=== PATIENT | male | born 1965 | race Caucasian/White ===

== ENCOUNTER 2016-06-19 11:47 | Inpatient (IN) | payer OTHER ==
--- NOTE | 2016-06-19 15:01 | HP ---
COWS - Scale Resting Pulse: 0= [place] 80 or Below Sweatin=Flushed/Facial Moisture Restless Observation: 3= Extraneous Movement Pupil Size: 2= Moderately Dilated Bone or Joint Aches: 2= Severe Diffuse Aches Runny Nose/ Eye Tearin= Runny Nose/Eyes GI Upset > 30mins: 3= Vomiting/Diarrhea Tremor Observation: 2= Slight Tremor Visible Yawning Observation: 2= >3x During Session Anxiety or Irritability: 2=Irritable/Anxious Goose Flesh Skin: 0=Smooth Skin COWS Score: 20 CIWA Score - CIWA Score Nausea/Vomitin Muscle Tremors: 3 Anxiety: 3 Agitation: 3 Paroxysmal Sweats: 2 Orientation: 0-Oriented Tacttile Disturbances: 2-Mild Itch/Numbness/Burn Auditory Disturbances: 2-Mild Harshness/Frighten Visual Disturbances: 2-Mild Sensitivity Headache: 2-Mild CIWA-Ar Total Score: 22 Admission ROS BHS - HPI Chief Complaint: I NEED HELP TO STOP USING HEROIN,ALCOHOL,XANAX Allergies/Adverse Reactions: Allergies Allergy/AdvReac Type Severity Reaction Status Date / Time No Known Allergies Allergy Verified 06/19/16 14:52 History of Present Illness: THIS 50 YEARS OLD WHITE MALE SEEKING HELP TO STOP USING HEROIN,ALCOHOL AND XANAX , MULTIPLE ADMISSIONS IN THE PAST,LAST DETOX [facility] IN 05/27 WEIGHT LOSS LONGEST PERIOD OF SOBRIETY 6 MONTHS Exam Limitations: No Limitations - Ebola screening Have you traveled outside of the country in the last 21 days: No Have you had contact with anyone from an Ebola affected area: No Have you been sick,other than usual withdrawal symptoms: No - Review of Systems Constitutional: Chills, Diaphoresis, Loss of Appetite, Malaise, Night Sweats, Changes in sleep, Weakness, Unintentional Wgt. Loss EENT: reports: Tearing, Nose Congestion Respiratory: reports: No Symptoms reported Cardiac: reports: Palpitations GI: reports: Diarrhea, Nausea, Vomiting, Abdominal cramping : reports: No Symptoms Reported Musculoskeletal: reports: Back Pain, Joint Pain, Muscle Pain, Joint Stiffness Integumentary: reports: Dryness Neuro: reports: Headache, Tremors Endocrine: reports: No Symptoms Reported Hematology: reports: No Symptoms Reported Psychiatric: reports: No Sypmtoms Reported, Judgement Intact, Mood/Affect Appropiate, Orientated x3, Depressed Patient History - Patient Medical History Hx Anemia: No Hx Asthma: No Hx Chronic Obstructive Pulmonary Disease (COPD): No Hx Cancer: No Hx Cardiac Disorders: No Hx Congestive Heart Failure: No Hx Hypertension: No Hx Hypercholesterolemia: No Hx Pacemaker: No HX Cerebrovascular Accident: No Hx Seizures: Yes (LAST 2006) Hx Dementia: No Hx Diabetes: No Hx Gastrointestinal Disorders: No Hx Liver Disease: No Hx Genitourinary Disorders: No Hx Sexually Transmitted Disorders: No Hx Renal Disease (ESRD): No Hx Thyroid Disease: No Hx Human Immunodeficiency Virus (HIV): Yes (LAST 05/27) Hx Hepatitis C: No Hx Depression: Yes (NO MED) Hx Suicide Attempt: No Hx Bipolar Disorder: No Hx Schizophrenia: No Other Medical History: NO SUICIDAL.NO HOMICIDAL - Patient Surgical History Past Surgical History: No - PPD History Previous Implant?: Yes Documented Results: Negative w/o proof Implanted On Prior [facility] Admission?: No PPD to be Administered?: Yes - Smoking Cessation Smoking history: Never smoked - Substance & Tx. History Hx Alcohol Use: Yes Hx Substance Use: Yes Substance Use Type: Alcohol, Heroin, Tranquilizers Hx Substance Use Treatment: Yes ([facility] 05/27) - Substances Abused Heroin Route: Inhalation Frequency: Daily Amount used: 10 BAGS Age of first use: 50 Date of Last Use: 06/18/16 Alcohol Route: Oral Frequency: Daily Amount used: 2 24 OZ BEERS Age of first use: 29 Date of Last Use: 06/12/16 Alprazolam (Xanax) Route: Oral Frequency: Daily Amount used: 2MG Age of first use: 24 Date of Last Use: 06/19/16 Family Disease History - Family Disease History Family Disease History: Heart Disease: Father (), Other: Mother ( ,PULMONARY EMBOLUS) Admission Physical Exam BHS - Vital Signs Vital Signs: Vital Signs - 24 hr 06/19/16 13:57 Temperature 96 F L Pulse Rate 77 Respiratory 20 Rate Blood Pressure 124/72 - Physical General Appearance: Yes: Moderate Distress, Tremorous, Irritable, Sweating, Anxious HEENTM: Yes: Normal ENT Inspection, Normocephalic, DEEDEE, Pharynx Normal Respiratory: Yes: Lungs Clear, Normal Breath Sounds, No Respiratory Distress Neck: Yes: Within Normal Limits, Supple, Trachea in good position Breast: Yes: Within Normal Limits Cardiology: Yes: Within Normal Limits, Regular Rhythm, Regular Rate, S1, S2 Abdominal: Yes: Within Normal Limits, Normal Bowel Sounds, Non Tender, Flat, Soft Genitourinary: Yes: Within Normal Limits Back: Yes: Muscle Spasm Musculoskeletal: Yes: full range of Motion, Back pain, Joint Stiffness, Muscle Pain Extremities: Yes: Within Normal Limits, Normal Range of Motion, Tremors Neurological: Yes: principal network architect II-XII NML intact, Fully Oriented, Alert, Motor Strength 5/5 Integumentary: Yes: Dry Lymphatic: Yes: Within Normal Limits - Diagnostic (1) Opioid dependence with withdrawal Current Visit: Yes Status: Acute (2) Alcohol dependence with uncomplicated withdrawal Current Visit: Yes Status: Acute (3) Uncomplicated sedative, hypnotic, or anxiolytic withdrawal Current Visit: Yes Status: Acute (4) Seizure Current Visit: Yes Status: Acute (5) Depression Current Visit: Yes Status: Acute (6) Weight loss Current Visit: Yes Status: Acute (7) Positive PPD Current Visit: Yes Status: Acute Cleared for Admission [facility] - Detox or Rehab [facility] Level of Care: Medically Managed Detox Regimen/Protocol: Methadone (URINE FOR DRUG SCREEN NEGATIVE FOR BENZODIAZEPAM) [facility] Breath Alcohol Content Breath Alcohol Content: 0 Urine Drug Screen - Results Drug Screen Negative: No Urine Drug Screen Results: OPI-Opiates
[2016-06-19] MEDS ORDERED: MAGNESIUM HYDROX 2400MG/30ML ORAL SUSPENSION 30 ML CUP PO PRN (15:11)
[2016-06-19] MEDS ORDERED: P-EPHED 60MG/TRIPROLIDI 2.5MG TABLET PO PRN (15:11)
[2016-06-19] MEDS ORDERED: guaiFENesin/D-METHORPHAN HB 10 ML UNIT-DOSE CUPS PO PRN (15:11)
[2016-06-19] MEDS ORDERED: MAGNESIUM CITRATE 300 ML BOTTLE PO PRN (15:11)
[2016-06-19] MEDS ORDERED: MENTHOL/PHENOL 1 EACH UD MM PRN (15:11)
[2016-06-19] MEDS ORDERED: IBUPROFEN 400 MG TABLET (FP) PO PRN (15:11)
[2016-06-19] MEDS ORDERED: diphenhydrAMINE HCL 50 MG CAPSULE PO PRN (15:11)
[2016-06-19] MEDS ORDERED: hydrOXYzine PAMOATE 50 MG CAPSULE (FP) PO PRN (15:11)
[2016-06-19] MEDS ORDERED: ACETAMINOPHEN 325 MG TABLET (FP) PO PRN (15:11)
[2016-06-19] MEDS ORDERED: MAG HYDROX/AL HYDROX/SIMETH 30 ML UNIT-DOSE CUP PO PRN (15:11)
[2016-06-19] MEDS ORDERED: LOPERAMIDE HCL 2 MG CAPSULE PO PRN (15:11)
[2016-06-19] MEDS ORDERED: METHADONE HCL 10 MG TABLET (FOR DETOX USE ONLY) PO ONE ×2 (15:30→23:00)
--- NOTE | 2016-06-19 17:46 | CONSULT ---
[facility] Psychiatric Consult - Data Date of interview: 06/19/16 Admission source: [facility] Identifying data: First admission to [facility] for this [place] Citizen-born male seeking detox treatment for alcohol,heroin and xanax dependence.Patient is single without children,domiciled,unemployed and reportedly deprived of any source of income. Substance Abuse History: - Smoking Cessation. Smoking history: Never smoked. - Substance & Tx. History. Hx Alcohol Use: Yes. Hx Substance Use: Yes. Substance Use Type: Alcohol, Heroin, Tranquilizers. Hx Substance Use Treatment : Yes ([facility] 05/27). - Substances Abused. Heroin. Route: Inhalation. Frequency: Daily. Amount used: 10 BAGS. Age of first use: 50. Date of Last Use: 06/18/16. Alcohol. Route: Oral. Frequency: Daily. Amount used: 2 24 OZ BEERS. Age of first use: 29. Date of Last Use: 06/12/16. Alprazolam ( Xanax). Route: Oral. Frequency: Daily. Amount used: 2MG. Age of first use: 24. Date of Last Use: 06/19/16. Confirmed by patient. Medical History: HIV infection (diagnosed in 2017),seizure disorder. Psychiatric History: Patient admits to a history of psychiatric hospitalizations in [place].Diagnosed with MDD and PTSD.Prescribed celexa 20 mg/day + trazodone 50 mg/hs.Verified by pharmacy claims of 06/03/16 at [facility].Patient denies history of suicide attempts. Physical/Sexual Abuse/Trauma History: Patient denies history of sexual abuse.Traumatized by his past experiences during his service in the [employer] ().Endorses occasional nightmares and flashbacks. Additional Comment: Urine Drug Screen Results: OPI-Opiates.Noted. Mental Status Exam - Mental Status Exam Alert and Oriented to: Time, Place, Person Cognitive Function: Good Patient Appearance: Well Groomed (thin habitus,short stature) Mood: Anxious, Apprehensive, Hopeful Affect: Mood Congruent, Constricted Patient Behavior: Fatigued, Appropriate, Cooperative Speech Pattern: Clear (bilingual), Appropriate Voice Loudness: Mildly Soft/Quiet Thought Process: Intact, Goal Oriented Thought Disorder: Not Present Hallucinations: Denies Suicidal Ideation: Denies Homicidal Ideation: Denies Insight/Judgement: Poor Sleep: Poorly, Difficulty falling asleep Appetite: Poor, Weight loss Muscle strength/Tone: Normal Gait/Station: Normal Psychiatric Findings - Problem List ([place] 1, 2,3) (1) Alcohol dependence with uncomplicated withdrawal Current Visit: Yes Status: Acute (2) Opioid dependence with withdrawal Current Visit: Yes Status: Acute (3) Uncomplicated sedative, hypnotic, or anxiolytic withdrawal Current Visit: Yes Status: Acute (4) Substance induced mood disorder Current Visit: Yes Status: Acute (5) Post traumatic stress disorder (PTSD) Current Visit: Yes Status: Chronic (6) Depressive disorder Current Visit: Yes Status: Chronic (7) Positive PPD Current Visit: Yes Status: Chronic (8) Seizure Current Visit: Yes Status: Chronic (9) Weight loss Current Visit: Yes Status: Chronic (10) Insomnia Current Visit: Yes Status: Acute - Initial Treatment Plan Initial Treatment Plan: Psychoeducation.Detoxification.Medications : celexa 20 mg po daily + trazodone 50 mg po hs.Side effects/benefits discussed with patient.Made aware of risk of sexual dysfunction,suicidal ideation (celexa), priapism (trazodone).He agrees with this careplan.Observation.
[2016-06-19] MEDS ORDERED: METHADONE HCL 10 MG TABLET PO ONE (19:22)
[2016-06-19] MEDS: THIAMINE HCL 100 MG TABLET (FP) PO SCH (22:43)
[2016-06-19] MEDS: traZODone HCL 50 MG TABLET (FP) PO SCH (22:44)
[2016-06-19] MEDS: cloNIDine HCL 0.1 MG TABLET PO SCH (22:45)
[2016-06-19 23:06] LABS: URINE APPEARANCE CLEAR; URINE BILIRUBIN NEGATIVE (NEGATIVE); URINE BLOOD NEGATIVE (NEGATIVE); URINE COLOR STRAW; URINE GLUCOSE (UA) NEGATIVE (NEGATIVE); URINE KETONE NEGATIVE (NEGATIVE); URINE LEUK ESTERASE NEGATIVE (NEGATIVE); URINE NITRITE NEGATIVE (NEGATIVE); URINE PROTEIN NEGATIVE (NEGATIVE); URINE UROBILINOGEN NEGATIVE E.U./dl (0.2-1.0)
[2016-06-20] MEDS: diazePAM 5 MG TABLET PO PRN ×2 (05:40→10:35)
[2016-06-20 09:13] LABS: HIV 1 & 2 AB NEGATIVE; HIV 1 AGp24 NEGATIVE
[2016-06-20 10:00] LABS: MCH 32.3 pg (25.7-33.7); MCHC 33.6 g/dl (32.0-35.9); MEAN PLT VOLUME 10.9 fl (7.5-11.1); PLATELET COUNT 146 K/MM3 (134-434); RDW 12.9 % (11.9-15.9); WHITE BLOOD COUNT 6.2 K/mm3 (4.0-10.0)
[2016-06-20] MEDS ORDERED: METHADONE HCL 10 MG TABLET (FOR DETOX USE ONLY) PO ONE (10:00)
[2016-06-20] MEDS ORDERED: CITALOPRAM HYDROBROMIDE 20 MG TABLET (FP) PO SCH (10:00)
[2016-06-20 10:03] LABS: ALBUMIN 4.6 g/dl (3.4-5.0); BILIRUBIN,TOTAL 0.5 mg/dL (0.2-1.0); SGOT/AST 18 U/L (15-37); SGPT/ALT 19 U/L (12-78)
[2016-06-20 10:06] LABS: ALK PHOS 67 U/L (45-117); ANION GAP 8 (8-16); CALCIUM 9.6 mg/dL (8.5-10.1); CO2 32 mmol/L (21-32); COCKROFT - GAULT 77.27; CREATININE 0.9 mg/dL (0.7-1.3); GLUCOSE,RANDOM 95 mg/dL (74-106); TOT PROT 8.1 g/dl (6.4-8.2)
[2016-06-20] MEDS: PRENATAL VITAMINS W/ FOLIC ACID TABLET (FP) PO SCH (10:34)
[2016-06-20] MEDS: cloNIDine HCL 0.1 MG TABLET PO SCH ×2 (10:35→22:55)
[2016-06-20] MEDS: CITALOPRAM HYDROBROMIDE 20 MG TABLET (FP) PO SCH (10:35)
[2016-06-20] MEDS: CYCLOBENZAPRINE HCL 10 MG TABLET (FP) PO PRN (11:42)
--- NOTE | 2016-06-20 12:50 | EKG ---
Test Reason : Blood Pressure : / mmHG Vent. Rate : 067 BPM Atrial Rate : 067 BPM P-R Int : 146 ms QRS Dur : 086 ms QT Int : 382 ms P-R-T Axes : 040 046 054 degrees QTc Int : 403 ms NORMAL SINUS RHYTHM NORMAL ECG NO PREVIOUS ECGS AVAILABLE Confirmed by SCOTT WILLIS MD ([id number]) on 06/20/2016 12:50:03 PM Referred By: German Aaron Confirmed By:SCOTT WILLIS MD
--- NOTE | 2016-06-20 13:38 | PN ---
[facility] CIWA - CIWA Score Nausea/Vomitin-Mild Nausea/No Vomiting Muscle Tremors: 4-Moderate,w/Arms Extend Anxiety: 3 Agitation: 2 Paroxysmal Sweats: 3 Orientation: 0-Oriented Tacttile Disturbances: 3-Moderate Itch/Numb/Burn Auditory Disturbances: 1-Very Mild Visual Disturbances: 0-None Headache: 3-Moderate CIWA-Ar Total Score: 20 BHS COWS - Scale Resting Pulse: 0= [place] 80 or Below Sweatin= Chills/Flushing Restless Observation: 1= Difficult to Sit Still Pupil Size: 0= Normal to Room Light Bone or Joint Aches: 2= Severe Diffuse Aches Runny Nose/ Eye Tearin= Nasal Congestion GI Upset > 30mins: 1= Stomach Cramp Tremor Observation of Outstretched Hands: 2= Slight Tremor Visible Yawning Observation: 1= 1-2x During Session Anxiety or Irritability: 2=Irritable/Anxious Goose Flesh Skin: 3=Piloerection COWS Score: 14 [facility] Progress Note (SOAP) Subjective: Body aches / muscle spasms, H/A, Tremors. Objective: PT. A & O X 3. 06/20/16 13:37 Vital Signs Temperature 97.2 F L 06/20/16 13:31 Pulse Rate 62 06/20/16 13:31 Respiratory Rate 18 06/20/16 13:31 Blood Pressure 76/49 06/20/16 13:31 O2 Sat by Pulse Oximetry (%) Laboratory Last Values WBC 6.2 K/mm3 (4.0-10.0) 06/20/16 06:00 RBC 4.35 M/mm3 (4.00-5.60) 06/20/16 06:00 Hgb 14.0 GM/dL (11.7-16.9) 06/20/16 06:00 Hct 41.8 % (35.4-49) 06/20/16 06:00 MCV 96.0 fl (80-96) 06/20/16 06:00 MCHC 33.6 g/dl (32.0-35.9) 06/20/16 06:00 RDW 12.9 % (11.9-15.9) 06/20/16 06:00 Plt Count 146 K/MM3 (134-434) 06/20/16 06:00 MPV 10.9 fl (7.5-11.1) 06/20/16 06:00 Sodium 140 mmol/L (136-145) 06/20/16 06:00 Potassium 3.9 mmol/L (3.5-5.1) 06/20/16 06:00 Chloride 100 mmol/L (98-107) 06/20/16 06:00 Carbon Dioxide 32 mmol/L (21-32) 06/20/16 06:00 Anion Gap 8 (8-16) 06/20/16 06:00 BUN 11 mg/dL (7-18) 06/20/16 06:00 Creatinine 0.9 mg/dL (0.7-1.3) 06/20/16 06:00 Creat Clearance w eGFR > 60 (>60) 06/20/16 06:00 Random Glucose 95 mg/dL (74-106) 06/20/16 06:00 Calcium 9.6 mg/dL (8.5-10.1) 06/20/16 06:00 Total Bilirubin 0.5 mg/dL (0.2-1.0) 06/20/16 06:00 AST 18 U/L (15-37) 06/20/16 06:00 ALT 19 U/L (12-78) 06/20/16 06:00 Alkaline Phosphatase 67 U/L (45-117) 06/20/16 06:00 Total Protein 8.1 g/dl (6.4-8.2) 06/20/16 06:00 Albumin 4.6 g/dl (3.4-5.0) 06/20/16 06:00 Urine Color Straw 06/19/16 23:00 Urine Appearance Clear 06/19/16 23:00 Urine pH 7.0 (5.0-8.0) 06/19/16 23:00 Ur Specific [place] 1.015 (1.005-1.025) 06/19/16 23:00 Urine Protein Negative (NEGATIVE) 06/19/16 23:00 Urine Glucose (UA) Negative (NEGATIVE) 06/19/16 23:00 Urine Ketones Negative (NEGATIVE) 06/19/16 23:00 Urine Blood Negative (NEGATIVE) 06/19/16 23:00 Urine Nitrite Negative (NEGATIVE) 06/19/16 23:00 Urine Bilirubin Negative (NEGATIVE) 06/19/16 23:00 Urine Urobilinogen Negative E.U./dl (0.2-1.0) 06/19/16 23:00 Ur Leukocyte Esterase Negative (NEGATIVE) 06/19/16 23:00 RPR Titer Nonreactive (NONREACTIVE) 06/20/16 06:00 HIV 1&2 Antibody Screen Negative 06/19/16 15:00 HIV P24 Antigen Negative 06/19/16 15:00 LABS NOTED. Assessment: 06/20/16 13:38 WITHDRAWAL SYMPTOMS. Plan: CONTINUE DETOX. ADVISED PATIENT TO FOLLOW-UP WITH [facility] AFTER DISCHARGE FROM DETOX FOR GENERAL MEDICAL ASSESSMENT AND FOR ABNORMAL ADMISSION LAB VALUES.
[2016-06-20] MEDS: THIAMINE HCL 100 MG TABLET (FP) PO SCH (22:55)
[2016-06-20] MEDS: traZODone HCL 50 MG TABLET (FP) PO SCH (22:55)
[2016-06-21] MEDS ORDERED: METHADONE HCL 5 MG TABLET (FOR DETOX USE ONLY) PO ONE (10:00)
[2016-06-21] MEDS: cloNIDine HCL 0.1 MG TABLET PO SCH (10:33)
[2016-06-21] MEDS: CYCLOBENZAPRINE HCL 10 MG TABLET (FP) PO PRN (10:33)
[2016-06-21] MEDS: diazePAM 5 MG TABLET PO PRN ×2 (10:33→22:55)
[2016-06-21] MEDS: PRENATAL VITAMINS W/ FOLIC ACID TABLET (FP) PO SCH (10:33)
[2016-06-21] MEDS: CITALOPRAM HYDROBROMIDE 20 MG TABLET (FP) PO SCH (10:33)
--- NOTE | 2016-06-21 15:55 | PN ---
[facility] CIWA - CIWA Score Nausea/Vomitin-No Nausea/No Vomiting Muscle Tremors: 4-Moderate,w/Arms Extend Anxiety: 2 Agitation: 2 Paroxysmal Sweats: 3 Orientation: 0-Oriented Tacttile Disturbances: 3-Moderate Itch/Numb/Burn Auditory Disturbances: 3-Moderate Harsh/Frighten Visual Disturbances: 2-Mild Sensitivity Headache: 0-None Present CIWA-Ar Total Score: 19 S COWS - Scale Resting Pulse: 0= [place] 80 or Below Sweatin=Flushed/Facial Moisture Restless Observation: 1= Difficult to Sit Still Pupil Size: 0= Normal to Room Light Bone or Joint Aches: 2= Severe Diffuse Aches Runny Nose/ Eye Tearin= None GI Upset > 30mins: 1= Stomach Cramp Tremor Observation of Outstretched Hands: 2= Slight Tremor Visible Yawning Observation: 1= 1-2x During Session Anxiety or Irritability: 2=Irritable/Anxious Goose Flesh Skin: 3=Piloerection COWS Score: 14 S Progress Note (SOAP) Subjective: Fatigue, Body aches, Tremors. Objective: PT. A & O X 3, OBSERVED AMBULATING ON UNIT. PT. REPORTS HISTORY OF LOW BP. PT. DENIES DIZZINESS. 06/21/16 15:51 Vital Signs Temperature 96.2 F L 06/21/16 13:58 Pulse Rate 61 06/21/16 13:58 Respiratory Rate 18 06/21/16 13:58 Blood Pressure 97/64 06/21/16 13:58 O2 Sat by Pulse Oximetry (%) Laboratory Last Values WBC 6.2 K/mm3 (4.0-10.0) 06/20/16 06:00 RBC 4.35 M/mm3 (4.00-5.60) 06/20/16 06:00 Hgb 14.0 GM/dL (11.7-16.9) 06/20/16 06:00 Hct 41.8 % (35.4-49) 06/20/16 06:00 MCV 96.0 fl (80-96) 06/20/16 06:00 MCHC 33.6 g/dl (32.0-35.9) 06/20/16 06:00 RDW 12.9 % (11.9-15.9) 06/20/16 06:00 Plt Count 146 K/MM3 (134-434) 06/20/16 06:00 MPV 10.9 fl (7.5-11.1) 06/20/16 06:00 Sodium 140 mmol/L (136-145) 06/20/16 06:00 Potassium 3.9 mmol/L (3.5-5.1) 06/20/16 06:00 Chloride 100 mmol/L (98-107) 06/20/16 06:00 Carbon Dioxide 32 mmol/L (21-32) 06/20/16 06:00 Anion Gap 8 (8-16) 06/20/16 06:00 BUN 11 mg/dL (7-18) 06/20/16 06:00 Creatinine 0.9 mg/dL (0.7-1.3) 06/20/16 06:00 Creat Clearance w eGFR > 60 (>60) 06/20/16 06:00 Random Glucose 95 mg/dL (74-106) 06/20/16 06:00 Calcium 9.6 mg/dL (8.5-10.1) 06/20/16 06:00 Total Bilirubin 0.5 mg/dL (0.2-1.0) 06/20/16 06:00 AST 18 U/L (15-37) 06/20/16 06:00 ALT 19 U/L (12-78) 06/20/16 06:00 Alkaline Phosphatase 67 U/L (45-117) 06/20/16 06:00 Total Protein 8.1 g/dl (6.4-8.2) 06/20/16 06:00 Albumin 4.6 g/dl (3.4-5.0) 06/20/16 06:00 Urine Color Straw 06/19/16 23:00 Urine Appearance Clear 06/19/16 23:00 Urine pH 7.0 (5.0-8.0) 06/19/16 23:00 Ur Specific [place] 1.015 (1.005-1.025) 06/19/16 23:00 Urine Protein Negative (NEGATIVE) 06/19/16 23:00 Urine Glucose (UA) Negative (NEGATIVE) 06/19/16 23:00 Urine Ketones Negative (NEGATIVE) 06/19/16 23:00 Urine Blood Negative (NEGATIVE) 06/19/16 23:00 Urine Nitrite Negative (NEGATIVE) 06/19/16 23:00 Urine Bilirubin Negative (NEGATIVE) 06/19/16 23:00 Urine Urobilinogen Negative E.U./dl (0.2-1.0) 06/19/16 23:00 Ur Leukocyte Esterase Negative (NEGATIVE) 06/19/16 23:00 RPR Titer Nonreactive (NONREACTIVE) 06/20/16 06:00 HIV 1&2 Antibody Screen Negative 06/19/16 15:00 HIV P24 Antigen Negative 06/19/16 15:00 LABS NOTED. Assessment: 06/21/16 15:54 WITHDRAWAL SYMPTOMS. Plan: CONTINUE DETOX. ADVISED PATIENT TO FOLLOW-UP WITH CALL OR CONTACT CENTRE OPERATOR / REHAB MEDICAL PROVIDER AFTER DISCHARGE FROM DETOX FOR GENERAL MEDICAL ASSESSMENT AND FOR ABNORMAL ADMISSION LAB VALUES.
[2016-06-21] MEDS: THIAMINE HCL 100 MG TABLET (FP) PO SCH (22:54)
[2016-06-21] MEDS: traZODone HCL 50 MG TABLET (FP) PO SCH (22:54)
[2016-06-22] MEDS ORDERED: METHADONE HCL 5 MG TABLET (FOR DETOX USE ONLY) PO ONE (10:00)
[2016-06-22] MEDS: diazePAM 5 MG TABLET PO PRN (10:59)
[2016-06-22] MEDS: PRENATAL VITAMINS W/ FOLIC ACID TABLET (FP) PO SCH (10:59)
[2016-06-22] MEDS: CITALOPRAM HYDROBROMIDE 20 MG TABLET (FP) PO SCH (10:59)
--- NOTE | 2016-06-22 15:33 | PN ---
S Progress Note (SOAP) Subjective: Fatigue, Anxious, Tremors. Objective: PT. A & O X 3, OBSERVED AMBULATING ON UNIT. 06/22/16 15:32 Vital Signs Temperature 96.2 F L 06/22/16 10:58 Pulse Rate 63 06/22/16 10:58 Respiratory Rate 18 06/22/16 10:58 Blood Pressure 103/67 06/22/16 10:58 O2 Sat by Pulse Oximetry (%) Laboratory Last Values WBC 6.2 K/mm3 (4.0-10.0) 06/20/16 06:00 RBC 4.35 M/mm3 (4.00-5.60) 06/20/16 06:00 Hgb 14.0 GM/dL (11.7-16.9) 06/20/16 06:00 Hct 41.8 % (35.4-49) 06/20/16 06:00 MCV 96.0 fl (80-96) 06/20/16 06:00 MCHC 33.6 g/dl (32.0-35.9) 06/20/16 06:00 RDW 12.9 % (11.9-15.9) 06/20/16 06:00 Plt Count 146 K/MM3 (134-434) 06/20/16 06:00 MPV 10.9 fl (7.5-11.1) 06/20/16 06:00 Sodium 140 mmol/L (136-145) 06/20/16 06:00 Potassium 3.9 mmol/L (3.5-5.1) 06/20/16 06:00 Chloride 100 mmol/L (98-107) 06/20/16 06:00 Carbon Dioxide 32 mmol/L (21-32) 06/20/16 06:00 Anion Gap 8 (8-16) 06/20/16 06:00 BUN 11 mg/dL (7-18) 06/20/16 06:00 Creatinine 0.9 mg/dL (0.7-1.3) 06/20/16 06:00 Creat Clearance w eGFR > 60 (>60) 06/20/16 06:00 Random Glucose 95 mg/dL (74-106) 06/20/16 06:00 Calcium 9.6 mg/dL (8.5-10.1) 06/20/16 06:00 Total Bilirubin 0.5 mg/dL (0.2-1.0) 06/20/16 06:00 AST 18 U/L (15-37) 06/20/16 06:00 ALT 19 U/L (12-78) 06/20/16 06:00 Alkaline Phosphatase 67 U/L (45-117) 06/20/16 06:00 Total Protein 8.1 g/dl (6.4-8.2) 06/20/16 06:00 Albumin 4.6 g/dl (3.4-5.0) 06/20/16 06:00 Urine Color Straw 06/19/16 23:00 Urine Appearance Clear 06/19/16 23:00 Urine pH 7.0 (5.0-8.0) 06/19/16 23:00 Ur Specific [place] 1.015 (1.005-1.025) 06/19/16 23:00 Urine Protein Negative (NEGATIVE) 06/19/16 23:00 Urine Glucose (UA) Negative (NEGATIVE) 06/19/16 23:00 Urine Ketones Negative (NEGATIVE) 06/19/16 23:00 Urine Blood Negative (NEGATIVE) 06/19/16 23:00 Urine Nitrite Negative (NEGATIVE) 06/19/16 23:00 Urine Bilirubin Negative (NEGATIVE) 06/19/16 23:00 Urine Urobilinogen Negative E.U./dl (0.2-1.0) 06/19/16 23:00 Ur Leukocyte Esterase Negative (NEGATIVE) 06/19/16 23:00 RPR Titer Nonreactive (NONREACTIVE) 06/20/16 06:00 HIV 1&2 Antibody Screen Negative 06/19/16 15:00 HIV P24 Antigen Negative 06/19/16 15:00 LABS NOTED. Assessment: 06/22/16 15:33 WITHDRAWAL SYMPTOMS. Plan: CONTINUE DETOX. ADVISED PATIENT TO FOLLOW-UP WITH SCOOP OPERATOR AFTER DISCHARGE FROM DETOX FOR GENERAL MEDICAL ASSESSMENT AND FOR ABNORMAL ADMISSION LAB VALUES.
[2016-06-22] MEDS: THIAMINE HCL 100 MG TABLET (FP) PO SCH (22:21)
[2016-06-22] MEDS: traZODone HCL 50 MG TABLET (FP) PO SCH (22:21)
[2016-06-23] MEDS ORDERED: METHADONE HCL 10 MG TABLET (FOR DETOX USE ONLY) PO ONE (10:00)
[2016-06-23] MEDS: PRENATAL VITAMINS W/ FOLIC ACID TABLET (FP) PO SCH (10:35)
[2016-06-23] MEDS: CITALOPRAM HYDROBROMIDE 20 MG TABLET (FP) PO SCH (10:35)
[2016-06-23 11:17] VITALS: BP 94/61; PULSE 61; TEMP 96.4
--- NOTE | 2016-06-23 15:42 | DS ---
[facility] Detox Discharge Summary Admission Date: 06/19/16 Discharge Date: 06/23/16 - History Present History: Alcohol Dependence, Opioid Dependence, Sedative Dependence Additional Comments: ADVISED PATIENT TO FOLLOW-UP WITH SOFTWARE PROJECT LEAD AFTER DISCHARGE FROM DETOX FOR GENERAL MEDICAL ASSESSMENT AND FOR ABNORMAL ADMISSION LAB VALUES. Pertinent Past History: Depression, Seizures, History of Positive PPD. - Physical Exam Results Vital Signs: Vital Signs Temperature 96.4 F L 06/23/16 11:16 Pulse Rate 61 06/23/16 11:16 Respiratory Rate 18 06/23/16 11:16 Blood Pressure 94/61 06/23/16 11:16 O2 Sat by Pulse Oximetry (%) Pertinent Admission Physical Exam Findings: WITHDRAWAL SYMPTOMS. Laboratory Last Values WBC 6.2 K/mm3 (4.0-10.0) 06/20/16 06:00 RBC 4.35 M/mm3 (4.00-5.60) 06/20/16 06:00 Hgb 14.0 GM/dL (11.7-16.9) 06/20/16 06:00 Hct 41.8 % (35.4-49) 06/20/16 06:00 MCV 96.0 fl (80-96) 06/20/16 06:00 MCHC 33.6 g/dl (32.0-35.9) 06/20/16 06:00 RDW 12.9 % (11.9-15.9) 06/20/16 06:00 Plt Count 146 K/MM3 (134-434) 06/20/16 06:00 MPV 10.9 fl (7.5-11.1) 06/20/16 06:00 Sodium 140 mmol/L (136-145) 06/20/16 06:00 Potassium 3.9 mmol/L (3.5-5.1) 06/20/16 06:00 Chloride 100 mmol/L (98-107) 06/20/16 06:00 Carbon Dioxide 32 mmol/L (21-32) 06/20/16 06:00 Anion Gap 8 (8-16) 06/20/16 06:00 BUN 11 mg/dL (7-18) 06/20/16 06:00 Creatinine 0.9 mg/dL (0.7-1.3) 06/20/16 06:00 Creat Clearance w eGFR > 60 (>60) 06/20/16 06:00 Random Glucose 95 mg/dL (74-106) 06/20/16 06:00 Calcium 9.6 mg/dL (8.5-10.1) 06/20/16 06:00 Total Bilirubin 0.5 mg/dL (0.2-1.0) 06/20/16 06:00 AST 18 U/L (15-37) 06/20/16 06:00 ALT 19 U/L (12-78) 06/20/16 06:00 Alkaline Phosphatase 67 U/L (45-117) 06/20/16 06:00 Total Protein 8.1 g/dl (6.4-8.2) 06/20/16 06:00 Albumin 4.6 g/dl (3.4-5.0) 06/20/16 06:00 Urine Color Straw 06/19/16 23:00 Urine Appearance Clear 06/19/16 23:00 Urine pH 7.0 (5.0-8.0) 06/19/16 23:00 Ur Specific [place] 1.015 (1.005-1.025) 06/19/16 23:00 Urine Protein Negative (NEGATIVE) 06/19/16 23:00 Urine Glucose (UA) Negative (NEGATIVE) 06/19/16 23:00 Urine Ketones Negative (NEGATIVE) 06/19/16 23:00 Urine Blood Negative (NEGATIVE) 06/19/16 23:00 Urine Nitrite Negative (NEGATIVE) 06/19/16 23:00 Urine Bilirubin Negative (NEGATIVE) 06/19/16 23:00 Urine Urobilinogen Negative E.U./dl (0.2-1.0) 06/19/16 23:00 Ur Leukocyte Esterase Negative (NEGATIVE) 06/19/16 23:00 RPR Titer Nonreactive (NONREACTIVE) 06/20/16 06:00 HIV 1&2 Antibody Screen Negative 06/19/16 15:00 HIV P24 Antigen Negative 06/19/16 15:00 LABS NOTED. - Treatment Hospital Course: Detox Protocol Followed, Detoxed Safely, Responded well, Discharged Condition Good Patient has Accepted a Rehab Referral to: NO -PT. TO GO HOME AT THIS TIME. 12- STEP / AA / NA PROGRAMS RECOMMENDED. - Medication Discharge Medications: Ambulatory Orders Citalopram Hydrobromide [Celexa -] 20 mg PO DAILY #30 tablet 06/19/16 Trazodone HCl [Desyrel -] 50 mg PO HS #30 tablet 06/19/16 - Diagnosis (1) Alcohol dependence with uncomplicated withdrawal Status: Acute (2) Depression Status: Chronic Qualifiers: Depression Type: unspecified Qualified Code(s): F32.9 - Major depressive disorder, single episode, unspecified (3) Insomnia Status: Acute Qualifiers: Insomnia type: unspecified Qualified Code(s): G47.00 - Insomnia, unspecified (4) Opioid dependence with withdrawal Status: Acute (5) Substance induced mood disorder Status: Acute (6) Uncomplicated sedative, hypnotic, or anxiolytic withdrawal Status: Acute (7) Positive PPD Status: Chronic (8) Seizure Status: Chronic (9) Weight loss Status: Chronic - AMA Did Patient Leave Against Medical Advice: No
[2016-06-24] MEDS ORDERED: METHADONE HCL 5 MG TABLET (FOR DETOX USE ONLY) PO ONE (06:00)
== END 2016-06-23 11:40 | disposition home or self-care (01) | DRG 773 ==
LOC: YASAS 11:47 → Y3N 15:19
PROVIDERS: ADMIT Internal Medicine Addiction Medicine; ATTEND Internal Medicine Addiction Medicine
PROC: HZ2ZZZZ Detoxification Services for Substance Abuse Treatment (ICD-10-PCS; principal; 2016-06-23)
DX: F11.23 Opioid dependence with withdrawal (principal); F13.230 Sedative, hypnotic or anxiolytic dependence with withdrawal, uncomplicated; F10.230 Alcohol dependence with withdrawal, uncomplicated; F32.9 Major depressive disorder, single episode, unspecified; F19.24 Other psychoactive substance dependence with psychoactive substance-induced mood disorder; G47.00 Insomnia, unspecified; G40.909 Epilepsy, unspecified, not intractable, without status epilepticus; R76.11 Nonspecific reaction to tuberculin skin test without active tuberculosis; R63.4 Abnormal weight loss; Z68.20 Body mass index [BMI] 20.0-20.9, adult
CPT/HCPCS: 36415; 71010-TC; 80053; 81003; 85027; 86593; 87389; 93005; 93010